=== PATIENT | female | born 1940 | race Caucasian/White ===

== ENCOUNTER 2016-09-23 17:32 | Emergency (ER) | payer OTHER ==
[~2016-09-23] VITALS: Ht 165.1 cm; Wt 104.3 kg
[~2016-09-23 17:32] MED LIST: AUGMENTIN 875875 MG PO; CENTRUM COMPLE1 EACH PO; FUROSEMIDE 20 M20 MG PO; IBUPROFEN 200200 M1 PO; MYLANTA TABLET1 TA1 PO; NORCO 5-325 TA1 EACH PO; ZPAK PO
[2016-09-23] MEDS ORDERED: COZAAR 25 MG TA25 M1 PO (17:49)
[2016-09-23] MEDS ORDERED: K-DUR 20 MEQ T20 MEQ PO (17:50)
[2016-09-23] MEDS ORDERED: TRAMADOL 50 MG50 MG PO (19:05)
[2016-09-23 19:09] VITALS: BP 108/42
== END 2016-09-23 19:09 | disposition home or self-care (01) ==
LOC: ER 17:32
DX: M25.562 Pain in left knee (principal); K21.9 Gastro-esophageal reflux disease without esophagitis; I50.9 Heart failure, unspecified; Z87.891 Personal history of nicotine dependence

== ENCOUNTER 2018-11-25 13:14 | Inpatient (IN) | payer OTHER ==
[~2018-11-25] VITALS: Ht 165.1 cm; Wt 103.4 kg
[2018-11-25 13:14] VITALS: BP 121/64
[~2018-11-25 13:14] MED LIST changes: +COZAAR 25 MG TA25 M1 PO; +K-DUR 20 MEQ T20 MEQ PO; +TRAMADOL 50 MG50 MG PO
[2018-11-25 13:43] LABS: HEMATOCRIT 35.5 % (37.0-47.0); HEMOGLOBIN 13.3 gm/dL (12.0-15.0); MCH 39.5 pg (26.0-34.0); MCHC 37.5 g/dL (28.0-37.0); MCV 105.3 fL (80.0-100.0); PLATELET COUNT 215 thou/uL (150-400); RBC 3.37 mil/uL (4.20-5.00); RDW 13.1 % (10.5-14.5); WBC 9.8 thou/uL (4.0-11.0)
[2018-11-25 13:53] LABS: ANION GAP 11 mmol/L (7-16); BUN 24 mg/dL (7-18); CALCIUM 8.8 mg/dL (8.5-10.1); CHLORIDE 104 mmol/L (98-107); CO2 25 mmol/L (21-32); CREATININE 1.2 mg/dL (0.6-1.0); GLUCOSE 112 mg/dL (74-106); POTASSIUM 4.2 mmol/L (3.5-5.1); SODIUM 140 mmol/L (136-145)
[2018-11-25 14:03] LABS: ALBUMIN 3.6 g/dL (3.4-5.0); SGOT 20 U/L (15-37); SGPT 23 U/L (30-65); TOTAL BILIRUBIN 0.7 mg/dL (<0.1-1.0); TOTAL PROTEIN 7.5 g/dL (6.4-8.2); TROPONIN-I <0.06 ng/mL (<0.06)
[2018-11-25 14:55] LABS: ABSOLUTE NEUTROPHILS 6.9 thou/uL (1.4-8.2)
[2018-11-25 15:10] VITALS: BP 107/65
[2018-11-25 15:38] VITALS: BP 108/60
[2018-11-25] MEDS ORDERED: LIPITOR40 MG PO (16:17)
[2018-11-25] MEDS ORDERED: LASIX 40 MG TAB40 M2 (16:17)
[2018-11-25 16:20] VITALS: BP 101/58
--- NOTE | 2018-11-25 18:20 | NUR ---
78 YO FEMALE ADMITTED TO 209 FROM ED WITH AFIB. ADMISSION ASSESSMENT COMPLETED, VSS, ALERT AND ORIENTED X4, AMBULATES TO THE BATHROOM WITH SBA, DILTIAZEM INFUSING AT 10ML. NO COMPLAINTS OF PAIN, WILL CONTINUE TO MONITOR.
[2018-11-25 20:15] VITALS: BP 105/43
[2018-11-26] VITALS (10 sets, daily range): BP systolic 96–148; BP diastolic 48–62
--- NOTE | 2018-11-26 03:03 | NUR ---
A/O X 4.COMPLAIN OF HEADACHE BUT DOESN'T WANT TO TAKE TYLENOL BECAUSE SHE STATES IT DOESN'T WORK.PT IS ON CARDIZEM GTT.MONITOR SHOWS AFIB.SON WAS HERE TO VISIT AND HE AND THE PATIENT INSIST TO HAVE A BLOOD THINNER FOR THE AFIB.LOVENOX WAS ORDERED AND WAS GIVEN.WILL MONITOR AND CONTINUE POC.
[2018-11-26 05:52] LABS: ANION GAP 9 mmol/L (7-16); BUN 18 mg/dL (7-18); CALCIUM 8.8 mg/dL (8.5-10.1); CHLORIDE 109 mmol/L (98-107); CO2 25 mmol/L (21-32); CREATININE 0.9 mg/dL (0.6-1.0); GLUCOSE 97 mg/dL (74-106); POTASSIUM 4.2 mmol/L (3.5-5.1); SODIUM 143 mmol/L (136-145); TROPONIN-I <0.06 ng/mL (<0.06)
[2018-11-26 07:37] LABS: HEMATOCRIT 25.3 % (37.0-47.0); HEMOGLOBIN 12.1 gm/dL (12.0-15.0); MCHC 47.9 g/dL (28.0-37.0); MCV 108.5 fL (80.0-100.0); RBC 2.33 mil/uL (4.20-5.00); RDW 13.2 % (10.5-14.5); WBC 6.7 thou/uL (4.0-11.0)
--- NOTE | 2018-11-26 17:42 | NUR ---
ASSESSMENT CHARTED- THE PATIENT HAS HAD A ZERO PAIN LEVEL OUT OF TEN THE ENTIRE SHIFT. THE ONLY COMPLAINT THE PATIENT HAD WAS A MILD HEADACHE. THE PATIENT STATED SHE HAD A MILD HEADACHE DUE TO THE LACK OF CAFFINE SHE HAS HAD. THE PATIENT STILL REPORTED A ZERO OUT OF 10 PAIN LEVEL WITH HAVING THE MILD HEADACHE. THE PATIENT INDEPENDENTLY AMBULATED THROUGHOUT THE DAY. THE PATIENT NEEDS ASSISTANCE X1 GETTING TO THE BATHROOM DUE TO HER IV PUMP. THE PATIENT DID GET UP AND SIT IN HER CHAIR ONCE TODAY. THE PATIENT WAS CALM, COOPERATIVE, AND NICE THROUGHOUT THE SHIFT. THE PATIENT HAS BEEN ALERT & ORIENTED X4 THROUGHOUT THE ENTIRE SHIFT. THE PATIENT HAS HAD TWO BOWEL MOVEMENTS. AT 1705 THE PATIENT'S HEART RATE WAS INCREASING TO 150-180 BPM. THE HEART RATE WOULD INCREASE WHEN THE PATIENT WOULD GET UP TO PERFORM HER ADL'S. THE CARDIZEM RATE INCREASED AT 1705 TO 10 GTTS. THE PATIENT'S HEART RATE DID DECREASE ONCE THE RATE WAS INCREASED TO 10 AND WHEN SHE COMPLETED HER ADL'S. THE PATIENT HAS HER BED IN THE LOWEST POSITION, THE CALL LIGHT IN REACH, HER PERSONAL ITEMS ARE IN REACH, THERE IS A CLEAR PATHWAY IN THE ROOM, AND THE ROOM IS WELL LIT.
--- NOTE | 2018-11-26 19:53 | EKG ---
[address] [place] [address] ELECTROCARDIOGRAM REPORT Name: MYNOR GONZALES Room #: 209-P ADM IN M.R.#: [id number] ������������������ Admission: 11/25/18 ������������������ Attend Phys: Tam Redmond MD Discharge: ������������������ Date of : 40 Report #: [id number] ����������������������������������������������������������������� [id number] THIS REPORT FOR: //name// [facility] ED Test Date: 2018-11-25 Test Time: 13:28:00 Pat Name: MYNOR GONZALES Department: Room: 209 Gender: F Special Projects Manager: : 1940 Requested By: Benito Cox Order Number: [id number] MD: Sonido Bradford Measurements Intervals [place] Rate: 138 P: WI: QRS: 45 QRSD: 89 T: -13 QT: 295 QTc: 447 Interpretive Statements Atrial fibrillation with rapid V-rate Ventricular premature complex Repolarization abnormality, prob rate related Baseline wander in lead(s) II,III,aVF,V2,V6 Compared to ECG 07/08/2016 17:14:25 Ventricular premature complex(es) now present Early repolarization now present Electronically Signed On 11-26-2018 19:52:51 CDT by Sonido Bradford [email or web address] ��������������������������������������������� <ELECTRONICALLY SIGNED> ���������������������������������������� By: Sonido Bradford MD ��������������������������������������������� 11/26/181951 27 27 Sonido Bradford MD /EPI
[2018-11-27] VITALS (11 sets, daily range): BP systolic 87–120; BP diastolic 52–79
--- NOTE | 2018-11-27 05:07 | NUR ---
TYLENOL WORKS WELL WITH HER HEADACHE.UP INDEPENDENTLY.ON CARDIZEM GTT; TITRATED.MONITOR SHOWS AFIB.WILL MONITOR AND CONTINUE POC.
[2018-11-27 05:15] LABS: HEMATOCRIT 24.9 % (37.0-47.0); HEMOGLOBIN 11.9 gm/dL (12.0-15.0); MCH 51.1 pg (26.0-34.0); MCHC 47.8 g/dL (28.0-37.0); MCV 107.1 fL (80.0-100.0); RBC 2.32 mil/uL (4.20-5.00); RDW 13.3 % (10.5-14.5); WBC 7.1 thou/uL (4.0-11.0)
[2018-11-27 05:24] LABS: CALCIUM 8.4 mg/dL (8.5-10.1); CREATININE 0.9 mg/dL (0.6-1.0); POTASSIUM 3.8 mmol/L (3.5-5.1)
--- NOTE | 2018-11-27 09:45 | TEE ---
[facility] [address] [employer] [place] [address] TRANSESOPHAGEAL ECHOCARDIOGRAM Name: MYNOR GONZALES Room #: 209-P [facility] IN ..#: [id number] ������������� Admission: 11/25/18 ������������� Attend Phys: Tam Redmond MD Discharge: ��� ������������� ��� Date of : 40 Date of Service: 11/27/18 0945 �� Report #: [id number] �������� ��������������������������������������������[id number] THIS REPORT FOR: //name// APPROVED REPORT Study performed: 11/27/2018 07:56:24 EXAM: Transesophageal Echocardiogram/Doppler with Cardioversion Patient Location: [facility] Room #: 209 BSA: 2.09 HR: 93 bpm BP: 120/61 mmHg Rhythm: Atrial Fibrillation Other Information Study Quality: Adequate Indications Atrial Fibrillation Cardioversion Echo Enhancing Agent Indication: Rule out Shunt Agent(s) / Amount(s) Used: Agitated Saline 6 cc Procedure After obtaining informed consent, patient underwent transesophageal echo in the [facility]. Type of Sedation : Conscious Sedation Sedation was administered by Imelda Field RN. Sedation was achieved intravenously with: Versed (4) Fentanyl (75) Transesophageal probe was inserted and advanced into esophagus without difficulty by Joseph Garcia MD. The JUAREZ was performed without complications. Synchronized Cardioversion attempted: Successful Synchronized Cardioversion acheived with 100 Joules after 1 attempt(s). Rhythm following Synchronized Cardioversion: Normal Sinus Rhythm Throughout the procedure, the blood pressure, pulse oximetry, cardiac rhythm, and rate were monitored. The patient tolerated the procedure without adverse effects. Recovery from conscious sedation was uneventful and vital signs were [facility] [address] [place] [address] TRANSESOPHAGEAL ECHOCARDIOGRAM Name: MYNOR GONZALES Room #: 209-P [facility] IN .R.#: [id number] ������������� Admission: 11/25/18 ������������� Attend Phys: Tam Redmond MD Discharge: ��� ������������� ��� Date of : 40 Date of Service: 11/27/18 0945 �� Report #: [id number] �������� ��������������������������������������������[id number] stable. Left Ventricle The left ventricle is normal size. There is normal LV segmental wall motion. There is normal left ventricular wall thickness. Left ventricular systolic function is normal. LVEF is 55-60%. Right Ventricle The right ventricle is normal size. The right ventricular systolic function is normal. Atria Left atrium is dilated. No thrombus is visualized in the left atrium or appendage. Possitive bubble study with right to left shunting consistent with PFO. Right atrium is dilated. Aortic Valve Aortic valve is trileaflet. Trace aortic regurgitation. There is no aortic valvular stenosis. Mitral Valve The mitral valve is normal in structure. Mild mitral regurgitation. Tricuspid Valve The tricuspid valve is normal in structure. Mild tricuspid regurgitation. Pulmonic Valve The pulmonary valve is normal in structure. Trace pulmonic regurgitation. Great Vessels The aortic root is normal in size. The ascending aorta is normal in size. IVC is normal in size and collapses >50% with inspiration. Pericardium There is no pericardial effusion. Critical Notification Critical Value: Yes Physician Notified Date: 11/27/2018 <Conclusion> [facility] [address] [place] [address] TRANSESOPHAGEAL ECHOCARDIOGRAM Name: MYNOR GONZALES Room #: 209-P ADM IN M.R.#: [id number] ������������� Admission: 11/25/18 ������������� Attend Phys: Tam Redmond MD Discharge: ��� ������������� ��� Date of : 40 Date of Service: 11/27/18 0945 �� Report #: [id number] �������� ��������������������������������������������[id number] Left ventricular systolic function is normal. There is normal LV segmental wall motion. LVEF is 55-60%. Both atria are dilated. No thrombus is visualized in the left atrium or appendage. Possitive bubble study with right to left shunting consistent with PFO. Aortic valve is trileaflet, no stenosis. Trace aortic regurgitation. The mitral valve is normal in structure. Mild mitral regurgitation. There is no pericardial effusion. Successful cardioversion of atrial fibrillation to sinus rhythm following one biphasic, synchronous Joule shock ��������������������������������������������� <ELECTRONICALLY SIGNED> ���������������������������������������� By: Joseph Garcia MD, [facility] ��������������������������������������������� 11/27/18 0945 0945 0945 Joseph Garcia MD, FACC /INF
[2018-11-27] MEDS ORDERED: XARELTO20 MG PO (12:11)
[2018-11-27] MEDS ORDERED: TOPROL XL25 MG PO (12:20)
[2018-11-27] MEDS ORDERED: FLECAINIDE ACET50 M2 PO (12:20)
--- NOTE | 2018-11-27 14:51 | NUR ---
PT CARE ASSUMED APPROX 0700. PT ALERT AND ORIENTED X4. DENIES PAIN AND SOA. VSS. CARD GTT MAINTAINED AT 10ML/HR THIS AM. [employer] SALES EXECUTIVE CALLED AND GAVE ORDERS FOR CARDIOVERSION PREP APPROX 0715 THAT INCLUDED DISCONTINUING CARD GTT. PROCEDURE WAS COMPLETED AND UNEVENTFUL PER REPORT. POST PROCEDURE VS INITIATED UPON PT RETURN AT APPROX 1030. DURING COMPLETION OF POST PROCEDURE VS PT BECAME HYPOTENSIVE. PT ASYMPTOMATIC AND MAP WNL. BP NORMALIZED AND DR FLORES APPROVED PT FOR DISCHARGE. ORTHOSTATIC BPs WERE NEGATIVE. PT TO DISCHARGE HOME AT THIS TIME PER DR FLORES. DISCHARGE PAPERWORK REVIEWED WITH PT AND SON. BOTH DENY QUESTIONS OR CONCERNS REGARDING POST HOSPITAL CARE AND F/U. IV OUT, TELE BOX OFF. HOSPITAL TRANSPORTATION TO ESCORT PT OUT TO PERSONAL VEHICLE TIMELY.
--- NOTE | 2018-11-29 12:10 | HC ---
[facility] [place] [address] CONSULTATION Name: MYNOR GONZALES Room #: 209-P [facility] IN M.R.#: [id number] Admission: 11/25/18 ������������������ Attend Phys: Tam Redmond MD Discharge: 11/27/18 ������������������ Date of : 40 Report #: [id number] THIS REPORT FOR: //name// CC: Tam Perez [facility] CARDIOLOGY CONSULTATION REASON FOR CONSULTATION: AFib. HISTORY OF PRESENT ILLNESS: The patient is a 78-year-old female who follows with Dr. Escalante. She has a history of hypertension. Back in 07/2016, she had a normal echo and at the same time showed a normal nuclear stress test. Several months ago, she had a prolonged episode of palpitations. It was assumed that maybe she had SVT or atrial fibrillation. However, she did well until just this Tuesday where she started having prolonged episodes of palpitations with associated fatigue and exertional dyspnea. She denies any chest pain or chest tightness. She denies any PND or orthopnea. She denies presyncope or syncope. REVIEW OF SYSTEMS: A 12-point review of systems was performed and was negative other than mentioned above. PAST MEDICAL HISTORY: As above. SOCIAL HISTORY: Does not smoke. FAMILY HISTORY: Noncontributory. ALLERGIES: None. MEDICATIONS: Reviewed. PHYSICAL EXAMINATION: VITAL SIGNS: Temperature 37.2, pulse 62, respiratory rate 18, blood pressure 118/48, sats 100%. GENERAL: No acute distress. HEENT: Oropharynx clear. NECK: Supple, no thyromegaly. HEART: Irregularly irregular with no JVD. LUNGS: Clear to auscultation bilaterally. ABDOMEN: Soft, nontender, nondistended. EXTREMITIES: No clubbing, cyanosis or edema. NEUROLOGIC: Cranial nerves 2-12 are intact. LABORATORY DATA: Hemoglobin 12, white count 6.7, platelets 183. Chemistries: Sodium 143, potassium 4.2, BUN 18, creatinine 0.9. Troponin negative x 2. TSH normal. EKG shows atrial fibrillation with rapid ventricular response. [facility] [address] [place] [address] CONSULTATION Name: MYNOR GONZALES Room #: 209-P [facility] IN ..#: [id number] Admission: 11/25/18 ������������������ Attend Phys: Tam Redmond MD Discharge: 11/27/18 ������������������ Date of : 40 Report #: [id number] Telemetry shows atrial fibrillation with controlled ventricular response. Chest x-ray shows no acute process. ASSESSMENT: Atrial fibrillation and atrial flutter with rapid ventricular response. PLAN: Will be to continue with the current rate control strategy. We will start her on Pradaxa 150 mg twice a day. Speaking with the patient and son, they would like her to be back in sinus rhythm as soon as possible. They are very concerned about strokes as her had a disabling stroke after he was not on anticoagulation. Therefore, if they can get into sinus rhythm sooner rather than later, this would be their preference. She will be made n.p.o. after midnight and undergo cardioversion tomorrow. We will not initiate antiarrhythmic drugs as we need to rule out a clot prior to proceeding with this. If she is cardioverted, then we could consider initiation of flecainide 100 mg b.i.d. post-cardioversion. ��������������������������������������������� <ELECTRONICALLY SIGNED> ���������������������������������������� By: Sonido Bradford MD ��������������������������������������������� 11/29/18 1210 1135 1303 Sonido Bradford MD /nt
== END 2018-11-27 15:12 | disposition home or self-care (01) | DRG 308 ==
LOC: ER 13:14 → 2N 15:54 → ENTRNSPT 11-27 15:04 → EDTRNSPTSTS 11-27 15:09 → 2N 11-27 15:12
PROVIDERS: Emergency Medicine; ADMIT Hospitalist
PROC: B24BZZ4 Ultrasonography of Heart with Aorta, Transesophageal (ICD-10-PCS; principal; 2018-11-27)
PROC: 5A2204Z Restoration of Cardiac Rhythm, Single (ICD-10-PCS; principal; 2018-11-27)
DX: I48.91 Unspecified atrial fibrillation (principal); N17.0 Acute kidney failure with tubular necrosis; K21.9 Gastro-esophageal reflux disease without esophagitis; I50.9 Heart failure, unspecified; I11.0 Hypertensive heart disease with heart failure; I48.92 Unspecified atrial flutter; M19.90 Unspecified osteoarthritis, unspecified site; E78.5 Hyperlipidemia, unspecified; Z87.891 Personal history of nicotine dependence; Z79.899 Other long term (current) drug therapy
CPT/HCPCS: 10081

== ENCOUNTER → 2019-12-24 | Outpatient (CLI) | payer OTHER ==
[~2019-12-24] MED LIST changes: +FLECAINIDE ACET50 M2 PO; +LASIX 40 MG TAB40 M2; +LIPITOR40 MG PO; +TOPROL XL25 MG PO; +XARELTO20 MG PO
== END ==
LOC: SJCVCIMAG 08:32
PROVIDERS: ATTEND Internal Medicine Cardiovascular Disease
DX: I08.1 Rheumatic disorders of both mitral and tricuspid valves (principal); I11.9 Hypertensive heart disease without heart failure; R94.31 Abnormal electrocardiogram [ECG] [EKG]; I48.91 Unspecified atrial fibrillation; E78.00 Pure hypercholesterolemia, unspecified; I27.20 Pulmonary hypertension, unspecified; K21.9 Gastro-esophageal reflux disease without esophagitis; Z82.49 Family history of ischemic heart disease and other diseases of the circulatory system; Z87.891 Personal history of nicotine dependence; Z79.899 Other long term (current) drug therapy

== ENCOUNTER → 2020-09-24 | Outpatient (CLI) | payer OTHER | LOC: SJCVCIMAG 09:16 | PROVIDERS: ATTEND Internal Medicine Cardiovascular Disease | DX: I08.1 Rheumatic disorders of both mitral and tricuspid valves (principal); I27.20 Pulmonary hypertension, unspecified; I48.0 Paroxysmal atrial fibrillation; I10 Essential (primary) hypertension; E78.00 Pure hypercholesterolemia, unspecified; K21.9 Gastro-esophageal reflux disease without esophagitis; Z87.891 Personal history of nicotine dependence; Z79.899 Other long term (current) drug therapy; Z82.49 Family history of ischemic heart disease and other diseases of the circulatory system ==

== ENCOUNTER → 2021-01-07 | Outpatient (CLI) | payer OTHER | LOC: SJCVCIMAG 09:46 | PROVIDERS: ATTEND Internal Medicine Cardiovascular Disease | DX: I65.23 Occlusion and stenosis of bilateral carotid arteries (principal); R09.89 Other specified symptoms and signs involving the circulatory and respiratory systems; R42 Dizziness and giddiness; E78.5 Hyperlipidemia, unspecified ==